=== PATIENT | female | born 1960 | race American Indian/Alaskan Native ===

== ENCOUNTER 2020-10-26 03:17 | Emergency (ER) | payer SELFPAY ==
--- NOTE | 2020-10-26 05:50 | XRay Report ---
CHEST 1 VIEW 10/26/2020 5:32 AM INDICATION / CLINICAL INFORMATION: Chest pain and SOB. Nausea. COMPARISON: None available. FINDINGS: SUPPORT DEVICES: None. HEART / MEDIASTINUM: No significant abnormality. LUNGS / PLEURA: No significant pulmonary or pleural abnormality. No pneumothorax. ADDITIONAL FINDINGS: No significant additional findings. IMPRESSION: 1. No acute findings. Signer Name: Johanna James MD Signed: 10/26/2020 5:46 AM Workstation Name: [id number]
[2020-10-26 06:25] LABS: Basophils % (Auto) 0.1 % (0.0-1.8); Hematocrit 50.2 % (30.3-42.9); Hemoglobin 16.2 gm/dl (10.1-14.3); Lymphocytes # (Auto) 0.8 K/mm3 (1.2-5.4); Mean Corpuscular HGB Conc 32 % (30-34); Mean Corpuscular Volume 77 fl (79-97); Monocytes # (Auto) 1.1 K/mm3 (0.0-0.8); Monocytes % (Auto) 8.3 % (0.0-7.3); Platelet Count 518 K/mm3 (140-440); Red Blood Count 6.49 M/mm3 (3.65-5.03); Red Cell Distribution Width 18.5 % (13.2-15.2)
[2020-10-26 06:50] LABS: Albumin 4.6 g/dL (3.9-5); BUN/Creatinine Ratio 29; Blood Urea Nitrogen 23 mg/dL (7-17); Calcium 9.9 mg/dL (8.4-10.2); Hemolysis Index 16
[2020-10-26] MEDS ORDERED: SODIUM CHLORIDE 0.9% 1000 ML 1,000 ML IV ONE ×2 (08:27)
[2020-10-26 08:33] LABS: Alanine Aminotransferase < 5 units/L (7-56)
--- NOTE | 2020-10-26 08:34 | Emergency Department Report ---
HPI - General Chief Complaint: Chest Pain Time Seen by Provider: 10/26/20 08:17 ED Past Medical Hx - Past Medical History Previous Medical History?: Yes Hx Diabetes: Yes Additional medical history: MS - Surgical History Past Surgical History?: Yes Additional Surgical History: Spinal Tap - Family History Family history: no significant - Social History Smoking Status: Never Smoker Substance Use Type: None ED Review of Systems ROS: Stated complaint: ANXIETY/CHEST PAIN Other details as noted in HPI Constitutional: denies: fever Eyes: denies: eye pain ENT: denies: throat pain Respiratory: denies: cough Cardiovascular: denies: chest pain Endocrine: increased thirst, increased urine Gastrointestinal: denies: abdominal pain, nausea, vomiting, diarrhea Genitourinary: denies: dysuria Musculoskeletal: denies: back pain Neurological: denies: vertigo Physical Exam - Physical Exam Vital Signs: Vital Signs 10/26/20 10/26/20 05:20 08:25 Temperature 98.5 F Pulse Rate 141 H Respiratory 18 23 Rate Blood Pressure 134/92 O2 Sat by Pulse 95 Oximetry ED Course Vital Signs 10/26/20 10/26/20 05:20 08:25 Temperature 98.5 F Pulse Rate 141 H Respiratory 18 23 Rate Blood Pressure 134/92 O2 Sat by Pulse 95 Oximetry ED Medical Decision Making - Lab Data Result diagrams: 10/26/20 05:40 10/26/20 05:40 - Differential Diagnosis DKA, dehydration Critical care attestation.: If time is entered above; I have spent that time in minutes in the direct care of this critically ill patient, excluding procedure time. ED Disposition Condition: Stable
[2020-10-26 11:45] VITALS: BP 133/87
[2020-10-26] MEDS ORDERED: cefTRIAXone/NS 2 GM/100 ML 2 GM/100 ML BAG IV ONE (12:55)
== END 2020-10-26 19:01 | disposition left against medical advice (07) ==
LOC: EDBD → ED 03:17
DX: R07.9 Chest pain, unspecified (principal); Z53.21 Procedure and treatment not carried out due to patient leaving prior to being seen by health care provider
CPT/HCPCS: 71045; 93005